=== PATIENT | female | born 2005 | race Caucasian/White ===

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

== ENCOUNTER 2023-12-16 12:35 | Emergency (ER) | payer BC | END 2023-12-16 13:36 | disposition left against medical advice (07) | LOC: MW.ED 12:35 | DX: Z53.21 Procedure and treatment not carried out due to patient leaving prior to being seen by health care provider (principal) ==

== ENCOUNTER 2025-02-12 03:09 | Inpatient (IN) | payer BC ==
[2025-02-12] MEDS ORDERED: Carboprost Tromethamine 250 MCG/1 mL Vial IM PRN (04:15)
[2025-02-12] MEDS ORDERED: Sodium Chloride 0.9% 2.5 ML Syringe FLUSH PRN (04:15)
[2025-02-12] MEDS ORDERED: Sodium Chloride 0.9% 10 ML Syringe FLUSH PRN (04:15)
[2025-02-12] MEDS ORDERED: Ondansetron 4 MG/2 ML SDV IVPUSH PRN (04:15)
[2025-02-12] MEDS ORDERED: Water For Irrigation,Sterile 1,000 ML Container IRR PRN (04:15)
[2025-02-12] MEDS ORDERED: fentaNYL 100 MCG/2 ML SDV IVPUSH PRN (04:23)
[2025-02-12 05:04] LABS: MEAN PLATELET VOLUME 10.5 fL (9.4-12.3); NRBC ABSOLUTE 0.00 K/uL (0.00-0.02); NRBC PERCENT 0.0 /100WBC (0.0-0.2); PLATELET COUNT,PLT 356 K/uL (150-400); RED BLOOD CELL COUNT 4.59 M/uL (4.10-5.30); WHITE BLOOD CELL COUNT,WBC 15.37 K/uL (3.9-11.3)
[2025-02-12] MEDS: ceFAZolin 2 GM in Water For Injection, Sterile 20 ML IVPUSH ONE (05:04)
[2025-02-12] MEDS: Lactated Ringers 1,000 ML IV SCH (05:07)
[2025-02-12 05:26] LABS: A/G RATIO 0.8 (0.9-1.6); ALANINE AMINOTRANSFERASE,ALT 17.0 IU/L (14-63); ASPARTATE AMNIOTRANSFERASE,AST 18.0 IU/L (15-37); BILIRUBIN TOTAL 0.4 mg/dL (0.2-1.0); BLOOD UREA NITROGEN,BUN 6.0 mg/dL (7.0-18.0); CARBON DIOXIDE,CO2 18.7 mmol/L (21.0-32.0); CHLORIDE,CL 106.0 mmol/L (98-107); CREATININE 0.4 mg/dL (0.6-1.0); EST CRCL DRUG DOSING (CG) 206.52 mL/min; GLUCOSE RANDOM 91.0 mg/dL (74-106); POTASSIUM,K 4.2 mmol/L (3.5-5.1); PROTEIN TOTAL,TP 5.5 g/dL (6.4-8.2); SODIUM,NA 138.0 mmol/L (136-145)
[2025-02-12] MEDS: Ropivacaine HCl/PF 400 MG in Premix Bag 1 BAG EPIDUR SCH (05:30)
[2025-02-12] MEDS ORDERED: ePHEDrine 50 MG/ML SDV IVPUSH PRN (05:39)
[2025-02-12] MEDS ORDERED: fentaNYL 100 MCG/2 ML SDV EPIDUR ONE (05:40)
[2025-02-12] MEDS ORDERED: dexmedeTOMIDine HCl 200 MCG/2 ML SDV EPIDUR SCH (05:45)
[2025-02-12] MEDS ORDERED: fentaNYL 100 MCG/2 ML SDV ONE (05:45)
[2025-02-12 06:03] LABS: ESTIMATED GFR 143.0 mL/min (>60)
[2025-02-12] MEDS: Oxytocin/0.9 % Sodium Chloride 30 UNIT/500 ML BAG IV SCH (10:14)
[2025-02-12] MEDS ORDERED: ceFAZolin 1 GM in Water For Injection, Sterile 10 ML IVPUSH SCH (12:30)
[2025-02-12] MEDS: Witch Hazel Medicated Pads 40/Jar TOP PRN (13:54)
[2025-02-12] MEDS: Benzocaine/Menthol 20%-0.5% Spray 78 GM Cannister TOP PRN (13:55)
[2025-02-12] MEDS: Lanolin 100% Cream 7 GM Tube TOP PRN (21:21)
== END 2025-02-14 11:15 | disposition home or self-care (01) | DRG 560 ==
LOC: MW.OBCHECK 03:09 → MW.OB 03:10 → MW.OBCHECK 04:30 → MW.OB 04:32 → OBSVTOIN 11:33 → MW.OB 13:48
PROVIDERS: ADMIT Obstetrics & Gynecology; ATTEND Obstetrics & Gynecology
PROC: 10E0XZZ Delivery of Products of Conception, External Approach (ICD-10-PCS; principal; 2025-02-12)
PROC: 0HQ9XZZ Repair Perineum Skin, External Approach (ICD-10-PCS; 2025-02-12)
PROC: 3E0R3BZ Introduction of Anesthetic Agent into Spinal Canal, Percutaneous Approach (ICD-10-PCS; 2025-02-12)
PROC: 00HU33Z Insertion of Infusion Device into Spinal Canal, Percutaneous Approach (ICD-10-PCS; 2025-02-12)
DX: O42.02 Full-term premature rupture of membranes, onset of labor within 24 hours of rupture (principal); Z37.0 Single live birth; O24.420 Gestational diabetes mellitus in childbirth, diet controlled; O99.824 Streptococcus B carrier state complicating childbirth; Z16.29 Resistance to other single specified antibiotic; B95.1 Streptococcus, group B, as the cause of diseases classified elsewhere; O70.0 First degree perineal laceration during delivery; D64.9 Anemia, unspecified; O90.81 Anemia of the puerperium; Z3A.39 39 weeks gestation of pregnancy; Z88.0 Allergy status to penicillin
CPT/HCPCS: 01967; 36415; 51702; 59025; 59409; 80053; 84112; 85014; 85018; 85027; 86592; 86850; 86900; 86901; A4216; A9270-GY; J0665; J0690; J2371; J2590; J2795; J3010; J7120